=== PATIENT | female | born 1950 | race Caucasian/White ===

== ENCOUNTER → 2017-01-26 | Outpatient (CLI) | payer MEDICARE, BC ==
[~2017-01-26] MED LIST: ALEVE220 MG PO; ASPIRIN EC81 MG PO; COLACE100 MG PO; DULERA 100 MCG/51 EA NOSE; DYAZIDE 37.5-21 EACH PO; ECOTRIN325 MG PO; FISH OIL 1,2001 EAC1 PO; MIRALAX17 GM PO; ROXICODONE 5MG (5 MG PO; THERA-VITE W/ B1 TAB PO; TYLENOL EXTRA500 MG PO; VALIUM5 MG PO; ZESTRIL2.5 MG PO; ZETIA10 MG PO
== END ==
LOC: LGSMG 09:18
DX: M25.561 Pain in right knee (principal); Z96.651 Presence of right artificial knee joint

== ENCOUNTER 2017-02-08 12:30 | Inpatient (IN) | payer MEDICARE, BC ==
[~2017-02-08] VITALS: Ht 152.4 cm; Wt 64.0 kg
--- NOTE | ~2017-02-08 | OR ---
PATIENT'S NAME: RAINE RASMUSSEN [facility] AGE: 66 Y [address] ROOM: [place] [address] LOCATION: [facility] ADMIT DATE: 02/15/2017 OR/Procedure Report DISCHARGE DATE: FAMILY PHYSICIAN: Sukh Saldivar MD ATTENDING PHYSICIAN: MONALISA MARTINI SURGEON: Monalisa Martini MD COMPRESSOR ENGINEER: Carlos Funes PA-C and Haris Christiansen PUTTY REMOVER/REAL ESTATE TRANSACTION COORDINATOR. DATE OF PROCEDURE: 02/15/2017 PREOPERATIVE DIAGNOSES: 1. Mechanical failure, right knee medial compartment, unicompartment arthroplasty (malalignment, ligamentous insufficiency, loose tibial component, and fractured medial tibial plateau). 2. Severe medial tibial plateau bone loss. POSTOPERATIVE DIAGNOSES: 1. Mechanical failure, right knee medial compartment, unicompartment arthroplasty (malalignment, ligamentous insufficiency, loose tibial component, and fractured medial tibial plateau). 2. Severe medial tibial plateau bone loss. PROCEDURE PERFORMED: Revision right knee arthroplasty with computer navigation (conversion of failed medial compartment, unicompartmental arthroplasty to total knee arthroplasty). ANESTHESIA: Spinal anesthesia plus adductor canal block plus periarticular local anesthesia (ropivacaine with epinephrine and Toradol). EXPLANTS: Biomet Spencer medial compartment, unicompartmental arthroplasty (tibial and femoral components). IMPLANTS: Yaya Triathlon size 2 universal tibial base plate with 10 mm size 2 medial tibial half block augment and 12 mm x 50 mm cemented tibial stem. 13 mm posterior stabilized size 2 X3 tibial polyethylene insert. Size 2 right posterior stabilized femoral component. 29 mm Oval X3 patellar component. ESTIMATED BLOOD LOSS: Less than 10 mL. DRAINS: None. COMPLICATIONS: None. SPECIMEN: Synovial fluid for cell count, Gram stain, and routine cultures. PATIENT'S NAME: RAINE RASMUSSEN [facility] AGE: 66 Y [address] ROOM: [place] [address] LOCATION: [facility] ADMIT DATE: 02/15/2017 OR/Procedure Report DISCHARGE DATE: FAMILY PHYSICIAN: Sukh Saldivar MD ATTENDING PHYSICIAN: MONALISA MARTINI INDICATION FOR PROCEDURE: Ms. Rasmussen is a 66-year-old female, who underwent a right knee medial compartment, unicompartment arthroplasty with Dr. Jung Jensen several months ago. She has been experiencing persistent and progressive right knee and right [place] pain. Preoperative radiographs demonstrates combined valgus and posterior orientation of the femoral component as well as significant tibial radiolucencies and a fractured medial tibial plateau. There was significant segmental loss of the medial proximal tibia. There was impingement between the lateral aspect of the femoral component and the tibial eminence. Due to the patient's persistent and progressive discomfort, she has elected to proceed with revision knee arthroplasty. She has been thoroughly counseled regarding the risks, benefits, limitations, and alternatives. We have specifically reviewed risks and the implications of infection, deep venous thrombosis, pulmonary embolism, mortality, neurovascular complications, stiffness, instability, wear, loosening, and potential need for further revision. Informed consent was granted. DESCRIPTION OF PROCEDURE: The patient was positioned supine after administration of regional anesthesia and prophylactic antibiotics. A well- padded pneumatic tourniquet was placed around her right proximal thigh, and her right lower extremity was prepped and draped with vigilant sterile technique. Examination under anesthesia demonstrated a moderate effusion. There was 5 mm of pseudolaxity of the medial collateral ligament. 1A Brad. Negative posterior drawer. Range of motion was from full extension to 120 degrees of flexion. There was a well-healed midline scar extending from the superior pole of the patella to the tibial tubercle. There was no erythema. There was no abnormal warmth. The right lower extremity was elevated and exsanguinated with an Esmarch wrap, and the pneumatic tourniquet was inflated to 300 mmHg. The knee was approached through a longitudinal midline incision incorporating the pre-existing midline scar. A medial parapatellar arthrotomy was performed. There was abundant serosanguineous fluid. There was a moderate amount of fibrinous exudate in the medial compartment. The tibial polyethylene insert was hypermobile. This was extracted. Motion was noted at the tibial interface. Impingement between the lateral aspect of the femoral component and the tibial eminence was visualized. Photographic documentation of intraoperative findings was obtained. The anterior aspect of the femoral component was somewhat recessed and posteriorly translated relative to the medial aspect of the femoral trochlea. Tibial and femoral components were extracted with virtually no bone loss. There was a nondisplaced fracture extending from the tibial component keel to the medial tibial cortex directly PATIENT'S NAME: RAINE RASMUSSEN [facility] AGE: 66 Y [address] ROOM: [id number] [place], [place] [address] LOCATION: [facility] ADMIT DATE: 02/15/2017 OR/Procedure Report DISCHARGE DATE: FAMILY PHYSICIAN: Sukh Saldivar MD ATTENDING PHYSICIAN: MONALISA MARTINI below the keel. The cruciate ligaments were intact. There were grade 2 degenerative changes at the femoral trochlea and lateral femoral condyle. There were moderate grade 3 degenerative changes throughout the medial facet of the patella. There was mild inner perimeter fraying of the lateral meniscus. It should be noted that the femoral component was extracted with a thin osteotome. Cement remained imbedded within the femoral lug holes. The tibial component lifted out without use of osteotomes. The keel slot was curetted with a small curette to extract loose cement remnants. Bone quality at the medial tibial plateau was qualitatively and quantitatively deficient. Cruciate ligaments and meniscal remnants were excised. The tibial and femoral computer navigation tracker arrays were pinned in place and osseous landmarks were obtained in order to calibrate the computer navigation system. The computer navigation system was subsequently utilized to resect the distal femur and proximal tibia perfectly perpendicular to the mechanical axes of the femur and tibia, respectively. A 10 mm step cut was performed at the tibial interface. This resected only approximately 1 mm of bone. A reciprocating saw was utilized to perform the vertical component of the resection and to complete the horizontal component of the resection. This was sized perfectly for the medial tibial plateau block augment. External rotation of the anterior and posterior femoral resections was set in order to create a perfectly rectangular flexion gap. Flexion and extension gaps were confirmed to be perfectly balanced and perfectly symmetric after the box resection and chamfer resections were performed. The proximal tibia was prepared for a 50 mm cemented stem extension. Trial reductions were performed. The patella resection was performed with an oscillating saw such that the composite reconstructed thickness of the patella (22 mm) was equivalent to the thickness of the tetlin patella. Patellar tracking was optimal, and there was no need for a lateral retinacular release. All trial components were removed and all prepared osseous surfaces were thoroughly irrigated with bacteriostatic pulsatile saline lavage and dried prior to cementing all three components in a single stage using Yaya Simplex cement with premixed tobramycin. All excess cement was removed. When the cement had hardened, final range of motion was confirmed to be 0 to 130 degrees of flexion. There was excellent anteroposterior stability at 90 degrees of flexion. There was 1 mm of lateral collateral ligament laxity in full extension. Patellar tracking was once again confirmed to be optimal. The entire incision was thoroughly irrigated at this point as well as several times throughout the case with bacteriostatic pulsatile saline lavage. PATIENT'S NAME: RAINE RASMUSSEN [facility] AGE: 66 Y [address] ROOM: [address] [address] LOCATION: [facility] ADMIT DATE: 02/15/2017 OR/Procedure Report DISCHARGE DATE: FAMILY PHYSICIAN: Sukh Saldivar MD ATTENDING PHYSICIAN: MONALISA MARTINI Periarticular soft tissues were infiltrated with ropivacaine with epinephrine and Toradol. The arthrotomy was closed with multiple simple interrupted #1 Vicryl and 0 Vicryl sutures. Subcutaneous tissues were thoroughly irrigated prior to closure with simple deep interrupted 0 Vicryl. The skin was closed with superficial buried interrupted 2-0 Vicryl followed by surgical sacha. The dressings consisted of Xeroform gauze, followed by sterile gauze, ABD pads, and an Froilan wrap. It should be noted that the physician's recreation assistant played an active, integral role throughout this entire operation. By providing expert retraction, they greatly facilitated and expedited safe and effective exposure of the distal femur, proximal tibia and patella for preparation and implantation of the components. They were also actively involved in the patient's positioning, prepping and draping, as well as wound closure. POSTOPERATIVE REHABILITATION PLAN: Due to the fact that there was a nondisplaced fracture at the medial tibial plateau, I elected to keep the patient toe-touch weightbearing for the first 6 weeks. It should be noted that this fracture did not displace during preparation and implantation of the components. The medial half of the medial plateau was involved in this lesion. MD UNIQUE WILKS/veronique /[id number] d: 02/16/17 0015 t: 02/22/17 1311, OPERATIVE SUMMARY
--- NOTE | ~2017-02-08 | DS ---
PATIENT'S NAME: RAINE GRAMAJO [facility] AGE: 66 Y [address] 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 SECONDARY DIAGNOSES: 1. Hypertension. 2. Hyperlipidemia. PROCEDURE PERFORMED: Removal of hardware of right knee and right knee revision total arthroplasty. HISTORY: The patient is a 66-year-old female, who presents with advanced degenerative joint disease of the failed right knee uni arthroplasty and associated severely compromised activities of daily living. The patient has decided to proceed with total knee arthroplasty after having been thoroughly counseled regarding the risks, benefits, limitations and alternatives. Please refer to the outpatient clinic notes and admission history and physical for this patient. HOSPITAL COURSE: The patient underwent a degenerative joint disease of the failed right knee uni arthroplasty on 02/15/2017 without complications. Spinal anesthesia plus adductor canal block plus periarticular local anesthesia was utilized. The patient received 24 hours of perioperative prophylactic antibiotics and remained hemodynamically stable, neurovascularly intact throughout the entire hospital course. The postoperative prophylactic deep venous thrombosis prophylaxis consisted of aspirin 325 mg, early mobilization and pneumatic compression devices. Daily physical therapy for gait training, transfer training range of motion and quadriceps isometric exercises were received. The patient progressed well in physical therapy. On the date of discharge, 02/17/2017, the incision at the knee was healing well and showed no signs of infection. DISPOSITION: Home. DISCHARGE ACTIVITY: The patient is to be strict toe-touch weightbearing with range of motion and quadriceps isometric exercises as instructed. The operative extremity is to be elevated at least 90% of the day. There is to be sterile 4x4 gauze dressings to the incision daily. Dr. Veliz is to be notified immediately if there are any increased pain, fevers, chills, erythema, or drainage. PATIENT'S NAME: RAINE GRAMAJO [facility] AGE: 66 Y [address] ROOM: [place] [address] LOCATION: [facility] ADMIT DATE: 02/15/2017 Discharge Summary DISCHARGE DATE: 02/17/2017 FAMILY PHYSICIAN: Sukh Saldivar MD ATTENDING PHYSICIAN: Gaston Veliz DISCHARGE MEDICATIONS: 1. Aspirin 325 mg 1 tablet p.o. daily for 30 days for postoperative DVT prophylaxis. 2. Oxycodone 5 mg 1-2 tablets p.o. every 4 hours p.r.n. for pain. 3. Diazepam 5 mg 1/2 to 1 tablet p.o. every 6 hours p.r.n. for muscle spasms. 4. She was then instructed to continue all her other pre-admission medications as instructed by her Internal Medicine physician. FOLLOWUP: Followup appointment is to be with Dr. Veliz's office on 02/22/2017 for initial postoperative evaluation with x-rays and for staple removal. DERRELL VYAS PA-C FOR MD JUSTINE WILKSW/modl /[id number] d: 02/23/17 0851 t: 02/23/17 1401, DISCHARGE SUMMARY
[2017-02-08] MEDS ORDERED: ZETIA10 MG PO (13:00)
[2017-02-08] MEDS ORDERED: DYAZIDE 37.5-21 EACH PO (13:00)
[2017-02-08] MEDS ORDERED: ZESTRIL2.5 MG PO (13:01)
[2017-02-08] MEDS ORDERED: FISH OIL 1,2001 EAC1 PO (13:02)
[2017-02-08] MEDS ORDERED: ASPIRIN EC81 MG PO (13:02)
[2017-02-08] MEDS ORDERED: ALEVE220 MG PO (13:02)
[2017-02-08] MEDS ORDERED: THERA-VITE W/ B1 TAB PO (13:03)
[2017-02-15] MEDS ORDERED: DULERA 100 MCG/51 EA NOSE (08:01)
[2017-02-17] MEDS ORDERED: TYLENOL EXTRA500 MG PO (10:09)
[2017-02-17] MEDS ORDERED: ECOTRIN325 MG PO (10:15)
[2017-02-17] MEDS ORDERED: COLACE100 MG PO (10:16)
[2017-02-17] MEDS ORDERED: MIRALAX17 GM PO (10:17)
[2017-02-17] MEDS ORDERED: VALIUM5 MG PO (10:19)
[2017-02-17] MEDS ORDERED: ROXICODONE 5MG (5 MG PO (10:20)
== END 2017-02-17 11:51 | disposition disaster alternative care site (69) | DRG 468 ==
LOC: G3N 02-15 06:26
PROVIDERS: ADMIT Orthopaedic Surgery
PROC: 0SRC0J9 Replacement of Right Knee Joint with Synthetic Substitute, Cemented, Open Approach (ICD-10-PCS; principal; 2017-02-15)
PROC: 0SPC0JZ Removal of Synthetic Substitute from Right Knee Joint, Open Approach (ICD-10-PCS; principal; 2017-02-15)
DX: T84.012A Broken internal right knee prosthesis, initial encounter (principal); I10 Essential (primary) hypertension; E78.5 Hyperlipidemia, unspecified; Z96.652 Presence of left artificial knee joint; M85.861 Other specified disorders of bone density and structure, right lower leg
CPT/HCPCS: C1776; J1100; J1170; J1885; J2001; J2795; J7120

== ENCOUNTER → 2017-02-08 | Outpatient (CLI) | payer MEDICARE, BC | LOC: GOPD 12:30 | DX: Z01.818 Encounter for other preprocedural examination (principal) ==